=== PATIENT | male | born 1990 | race American Indian/Alaskan Native ===

== ENCOUNTER 2020-03-31 14:52 | Emergency (ER) | payer SELFPAY ==
[2020-03-31 14:57] VITALS: BP 131/72
--- NOTE | 2020-03-31 15:59 | Emergency Department Report ---
Abscess Boil HPI - HPI Chief Complaint: Back Pain/Injury Stated Complaint: BACK PAIN Time Seen by Provider: 03/31/20 15:26 Duration: 2 Days Location: Back Severity: Mild History: Yes Pain, No Fever, No Purulent Drainage, No Numbness, No Foreign Body, No Previous History, No Insect Bite HPI: This is a 29-year-old male nontoxic, well nourished in appearance, no acute signs of distress presents to the ED with c/o of redness and pain and swelling to throacic spinal area x2 ays. Patient denies any pus or drainage. Patient denies any fever, chills, nausea, vomiting, chest pain, shortness of breath, headache or stiff neck. Patient denies any allergies or significant past medical history. Home Medications: Previous Rx's Medication Instructions Recorded Last Taken Type Ibuprofen [Motrin] 800 mg PO TID #30 tablet 07/13/13 Unknown Rx methOCARBAMOL [Robaxin] 500 mg PO BID #20 tab 07/13/13 Unknown Rx traMADoL [Ultram 50 MG tab] 50 mg PO Q6HR PRN #20 tablet 07/13/13 Unknown Rx Acetaminophen/Codeine [Tylenol 1 tab PO Q6H PRN #12 tab 03/31/20 Unknown Rx /Codeine # 3 tab] Sulfamethoxazole/Trimethoprim 1 each PO BID #14 tablet 03/31/20 Unknown Rx [Bactrim DS TAB] Allergies/Adverse Reactions: Allergies Allergy/AdvReac Type Severity Reaction Status Date / Time No Known Allergies Allergy Verified 07/13/13 08:52 ED Review of Systems ROS: Stated complaint: BACK PAIN Other details as noted in HPI Constitutional: denies: chills, fever Eyes: denies: eye pain, eye discharge, vision change ENT: denies: ear pain, throat pain Respiratory: denies: cough, shortness of breath, wheezing Cardiovascular: denies: chest pain, palpitations Endocrine: no symptoms reported Gastrointestinal: denies: abdominal pain, nausea, diarrhea Genitourinary: denies: urgency, dysuria Musculoskeletal: denies: back pain, joint swelling, arthralgia Skin: denies: rash, lesions Neurological: denies: headache, weakness, paresthesias Psychiatric: denies: anxiety, depression Hematological/Lymphatic: denies: easy bleeding, easy bruising ED Past Medical Hx - Past Medical History Previous Medical History?: No - Surgical History Past Surgical History?: No - Social History Smoking Status: Current Every Day Smoker Substance Use Type: Alcohol - Medications Home Medications: Home Medications Medication Instructions Recorded Confirmed Last Taken Type Ibuprofen [Motrin] 800 mg PO TID #30 tablet 07/13/13 Unknown Rx methOCARBAMOL [Robaxin] 500 mg PO BID #20 tab 07/13/13 Unknown Rx traMADoL [Ultram 50 MG tab] 50 mg PO Q6HR PRN #20 tablet 07/13/13 Unknown Rx Acetaminophen/Codeine [Tylenol 1 tab PO Q6H PRN #12 tab 03/31/20 Unknown Rx /Codeine # 3 tab] Sulfamethoxazole/Trimethoprim 1 each PO BID #14 tablet 03/31/20 Unknown Rx [Bactrim DS TAB] ED Abscess Boil Physical Exam - Exam General: Vital signs noted. No distress. Alert and acting appropriately. Front/Back of Body, Lg (Color): 1 - 3 cm swelling noted Size: 3 cm Exam: Yes Tenderness, Yes Fluctuance, Yes Normal Neurologic Exam, Yes Normal Circulation, No Surrounding Cellulites/Erythema, No Lymphangitis, No Crepitation, No Heart Murmur I & D Note - I & D Note I & D Note: Under sterile field, I used Betadine to cleanse the area. I then used 2% lidocaine plain with 25-gauge 5/8 needle to inject area for anesthetic purposes. Total volume injected 3 mL. I then used an 11 blade to make a 1 cm incision. About 2 mL's of purulent drainage has been noted. I then used a hemostat to break the abscess formation. I then used sterile 0.9% normal saline flush to flush the wound with total volume of 40 mL used. I then put a 1/4 iodoform packing to the incision. A sterile 4 x 4 with tape has been applied as dressing. Bleeding is under control. Patient tolerated the procedure well with no signs of distress noted. ED Course Vital Signs 03/31/20 14:54 Temperature 98.1 F Pulse Rate 68 Respiratory 18 Rate Blood Pressure 131/72 O2 Sat by Pulse 98 Oximetry - Reevaluation(s) Reevaluation #1: 03/31/20 15:59 Patient is speaking in full sentences with no signs of distress noted. Critical care attestation.: If time is entered above; I have spent that time in minutes in the direct care of this critically ill patient, excluding procedure time. ED Medical Decision Making - Lab Data Result diagrams: 03/31/20 15:35 03/31/20 15:35 - Medical Decision Making This is a 29-year-old male that presents with back abscess. Patient is stable and was examined by me. This is incision and drainage and has been performed and patient tolerated well. A sterile dressing has been applied. Patient was educated on proper wound care. Patient is discharged with Bactrim and Tylenol with codeine and was instructed not to operate any machinery while taking Tylenol with codeine due to drowsiness. Patient was instructed to return in 2 days for packing removal. Patient was instructed to refer to Follow-up with a primary care doctor in 3-5 days or if symptoms worsen and continue return to emergency room as soon as possible. At time of discharge, the patient does not seem toxic or ill in appearance. No acute signs of distress noted. Patient agrees to discharge treatment plan of care. No further questions noted by the patient. ED Disposition Clinical Impression: Encounter for incision and drainage procedure, Abscess Disposition: DC-01 TO HOME OR SELFCARE Is pt being admited?: No Does the pt Need Aspirin: No Condition: Stable Instructions: Abscess (ED), Abscess Incision and Drainage (ED), Acetaminophen /Codeine (By mouth) Additional Instructions: Follow-up with a primary care doctor in 3-5 days or if symptoms worsen and continue return to emergency room as soon as possible. Return in 2 days for packing removal. Do not operate any machinery while taking Tylenol with codeine as this may cause drowsiness. Prescriptions: Sulfamethoxazole/Trimethoprim [Bactrim DS TAB] 1 each PO BID #14 tablet Acetaminophen/Codeine [Tylenol /Codeine # 3 tab] 1 tab PO Q6H PRN #12 tab PRN Reason: Pain , Severe (7-10) Referrals: PRIMARY MD VALERIE [Primary Care Provider] - 3-5 Days SHAHRIAR DAVENPORT MD [Staff Physician] - 3-5 Days Forms: Work/School Release Form(ED)
[2020-03-31 16:02] LABS: Basophils % (Auto) 0.4 % (0.0-1.8); Eosinophils # (Auto) 0.4 K/mm3 (0.0-0.4); Eosinophils % (Auto) 3.3 % (0.0-4.3); Hematocrit 47.2 % (35.5-45.6); Hemoglobin 16.1 gm/dl (11.8-15.2); Lymphocytes # (Auto) 2.4 K/mm3 (1.2-5.4); Mean Corpuscular HGB Conc 34 % (32-34); Mean Corpuscular Volume 93 fl (84-94); Monocytes % (Auto) 9.6 % (0.0-7.3); Platelet Count 219 K/mm3 (140-440); Red Cell Distribution Width 13.1 % (13.2-15.2)
[2020-03-31 16:03] LABS: BUN/Creatinine Ratio 10; Blood Urea Nitrogen 10 mg/dL (9-20); Calcium 9.6 mg/dL (8.4-10.2); Hemolysis Index 7
[2020-03-31 16:25] LABS: Bilirubin,Urine NEG (Negative); Blood,Urine NEG (Negative); Color,Urine Yellow (Yellow); Mucus,Urine 2+ /HPF; Protein,Urine <15 mg/dL mg/dL (Negative)
--- NOTE | 2020-03-31 17:31 | Cat Scan Report ---
CT THORACIC SPINE WITHOUT CONTRAST INDICATION / CLINICAL INFORMATION: swelling with tenderness r/o abscess. TECHNIQUE: Axial CT images were obtained through the thoracic spine. Sagittal and coronal reformatted images wer e produced. All CT scans at this location are performed using CT dose reduction for ALARA by means of automated exposure control. COMPARISON: None available. FINDINGS: VERTEBRAE: Vertebral morphology is normally maintained throughout. ALIGNMENT: Normal alignment is preserved throughout the thoracic region. DISC SPACES: Disc height is fairly well-maintained. FACET and COSTOVERTEBRAL JOINTS: No significant abnormality. CERVICOTHORACIC JUNCTION:No significant abnormality. SPINAL CANAL: Central spinal canal is generous in size throughout the thoracic region. PARASPINAL SOFT TISSUES: A 19 x 16 x 12 mm subcutaneous lesion is present dorsal to the T7 vertebrae to the left of the midline. This has a low-attenuation center and poorly defined margins. This may re present a cyst or subcutaneous abscess. ADDITIONAL FINDINGS: None. LUNGS: Visualized portions the lung are free from confluent infiltrate. No lung nodules are identifie d. There is no indication of pleural effusion. IMPRESSION: 1. There is a subcutaneous lesion lateralizing to the left the midline at the T7 level as described a carmen. Signer Name: Bryan Barlow MD Signed: 03/31/2020 5:27 PM Workstation Name: [id number]
[2020-03-31] MEDS ORDERED: LIDOCAINE (2%) 20 MG/1 ML VIAL 20 ML MDV INFILTRATI ONE (18:22)
== END 2020-03-31 18:40 | disposition home or self-care (01) ==
LOC: ED 14:52
DX: L02.212 Cutaneous abscess of back [any part, except buttock and flank] (principal); F17.200 Nicotine dependence, unspecified, uncomplicated
CPT/HCPCS: 10060; 36415; 72129; 80048; 81001; 85025; 99284; Q9967

== ENCOUNTER 2020-11-24 14:39 | Emergency (ER) | payer SELFPAY ==
[2020-11-24 14:55] VITALS: BP 125/80
--- NOTE | 2020-11-24 15:38 | XRay Report ---
RIGHT WRIST 3 VIEWS RIGHT HAND 3 VIEWS INDICATION / CLINICAL INFORMATION: right wrist and hand pain and swelling COMPARISON: None available. FINDINGS: BONES / JOINT(S): RIGHT WRIST: No acute fracture or subluxation. No significant arthritis. RIGHT HAND: No acute fracture or subluxation. No significant arthritis. SOFT TISSUES: Mild soft tissue swelling of the dorsum of the wrist and hand. ADDITIONAL FINDINGS: None. Signer Name: Chema Mayer MD Signed: 11/24/2020 3:33 PM Workstation Name: [id number]
--- NOTE | 2020-11-24 16:09 | Emergency Department Report ---
ED Upper Extremity Inj HPI - General Chief Complaint: Extremity Injury, Upper Stated Complaint: RT ARM INJURY Time Seen by Provider: 11/24/20 14:56 Source: patient Mode of arrival: Ambulatory Limitations: No Limitations - History of Present Illness Initial Comments: This is a 30-year-old male nontoxic, well nourished in appearance, no acute signs of distress presents to the ED with c/o of right hand and wrist pain 1 day. Patient stated that a car triston fell onto his wrist/hand area earlier today. Patient denies any other injuries or trauma. Patient denies any numbness, tingling, fever, chills, nausea, vomiting, chest pain, shortness of breath, headache, stiff neck. Patient denies any joint swelling or joint redness. Patient stated has some decreased range of motion due to pain. Patient denies any allergies or significant past medical history. MD Complaint: Injury to:: right, wrist, hand -: days(s) Other Extremity Injury: Hand: Right, Wrist: Right Severity scale (0 -10): 8 Improves With: immobilization Worsens With: movement of extremity Associated Symptoms: denies other symptoms. denies: weakness, numbness, neck pain, suspects foreign body, nausea/vomiting, heard/felt popping sensat - Related Data Previous Rx's Medication Instructions Recorded Last Taken Type Ibuprofen [Motrin] 800 mg PO TID #30 tablet 07/13/13 Unknown Rx methOCARBAMOL [Robaxin] 500 mg PO BID #20 tab 07/13/13 Unknown Rx traMADoL [Ultram 50 MG tab] 50 mg PO Q6HR PRN #20 tablet 07/13/13 Unknown Rx Acetaminophen/Codeine [Tylenol 1 tab PO Q6H PRN #12 tab 03/31/20 Unknown Rx /Codeine # 3 tab] Sulfamethoxazole/Trimethoprim 1 each PO BID #14 tablet 03/31/20 Unknown Rx [Bactrim DS TAB] Naproxen 500 mg PO Q12H PRN #12 tablet 11/24/20 Unknown Rx Allergies Allergy/AdvReac Type Severity Reaction Status Date / Time No Known Allergies Allergy Verified 07/13/13 08:52 ED Review of Systems ROS: Stated complaint: RT ARM INJURY Other details as noted in HPI Comment: All other systems reviewed and negative Constitutional: denies: chills, fever Eyes: denies: eye pain, eye discharge, vision change ENT: denies: ear pain, throat pain Respiratory: denies: cough, shortness of breath, wheezing Cardiovascular: denies: chest pain, palpitations Endocrine: no symptoms reported Gastrointestinal: denies: abdominal pain, nausea, diarrhea Genitourinary: denies: urgency, dysuria Musculoskeletal: denies: back pain, joint swelling, arthralgia Skin: denies: rash, lesions Neurological: denies: headache, weakness, paresthesias Psychiatric: denies: anxiety, depression Hematological/Lymphatic: denies: easy bleeding, easy bruising ED Past Medical Hx - Past Medical History Previous Medical History?: No - Surgical History Past Surgical History?: No - Social History Smoking Status: Current Every Day Smoker Substance Use Type: Alcohol - Medications Home Medications: Home Medications Medication Instructions Recorded Confirmed Last Taken Type Ibuprofen [Motrin] 800 mg PO TID #30 tablet 07/13/13 Unknown Rx methOCARBAMOL [Robaxin] 500 mg PO BID #20 tab 07/13/13 Unknown Rx traMADoL [Ultram 50 MG tab] 50 mg PO Q6HR PRN #20 tablet 07/13/13 Unknown Rx Acetaminophen/Codeine [Tylenol 1 tab PO Q6H PRN #12 tab 03/31/20 Unknown Rx /Codeine # 3 tab] Sulfamethoxazole/Trimethoprim 1 each PO BID #14 tablet 03/31/20 Unknown Rx [Bactrim DS TAB] Naproxen 500 mg PO Q12H PRN #12 tablet 11/24/20 Unknown Rx ED Physical Exam - General Limitations: No Limitations General appearance: alert, in no apparent distress - Head Head exam: Present: atraumatic, normocephalic - Eye Eye exam: Present: normal appearance - Neck Neck exam: Present: normal inspection, full ROM - Respiratory Respiratory exam: Absent: respiratory distress - Cardiovascular Cardiovascular Exam: Present: regular rate - Extremities Exam Extremities exam: Present: normal inspection, full ROM, tenderness, normal capillary refill. Absent: joint swelling - Expanded Upper Extremity Exam Right General: Present: normal inspection Shoulder Exam: Present: normal inspection, full ROM. Absent: tenderness, swelling Upper Arm exam: Present: normal inspection, full ROM. Absent: tenderness, swelling Elbow exam: Present: normal inspection, full ROM. Absent: tenderness, swelling Forearm Wrist exam: Present: full ROM, tenderness, swelling. Absent: abrasion, laceration, ecchymosis, deformity, crepidus, dislocation, erythema, tenderness over anatomical snuff box, pain with axial thumb loading Hand Wrist exam: Present: normal inspection, full ROM, tenderness, swelling. Absent: abrasion, laceration, ecchymosis, deformity, crepidus, dislocation, erythema, amputation, nail avulsion, subungual hematoma Hand L/R Back: 1 - Pain and swelling here 2 - Pain and swelling Vascular: Present: normal capillary refill. Absent: vascular compromise (Neurovascular within normal limits) - Back Exam Back exam: Present: normal inspection, full ROM. Absent: tenderness - Neurological Exam Neurological exam: Present: alert, oriented X3, normal gait - Psychiatric Psychiatric exam: Present: normal affect, normal mood - Skin Skin exam: Present: warm, dry, intact, normal color. Absent: rash ED Course Vital Signs 11/24/20 14:54 Temperature 98.2 F Pulse Rate 92 H Respiratory 15 Rate Blood Pressure 125/80 O2 Sat by Pulse 97 Oximetry - Reevaluation(s) Reevaluation #1: 11/24/20 16:08 Patient is speaking in full sentences with no signs of distress noted. ED Medical Decision Making - Radiology Data [facility] [address] [place] [address] XRay Report Signed Patient: ROGER RIBEIRO MR#: [id number] : 1990 Acct:[id number] Age/Sex: 30 / M ADM Date: 11/24/20 Loc: ED Attending Dr: Ordering Physician: FREDO PICHARDO NP Date of Service: 11/24/20 Pr ocedure(s): XR hand 3+V RT Accession Number(s): [id number] cc: FREDO PICHARDO NP Fluoro Time In Minutes: RIGHT WRIST 3 VIEWS RIGHT HAND 3 VIEWS INDICATION / CLINICAL INFORMATION: right wrist and hand pain and swelling COMPARISON: None available. FINDINGS: BONES / JOINT(S): RIGHT WRIST: No acute fracture or subluxation. No significant arthritis. RIGHT HAND: No acute fracture or subluxation. No significant arthritis. SOFT TISSUES: Mild soft tissue swelling of the dorsum of the wrist and hand. ADDITIONAL FINDINGS: None. Signer Name: Chema Mayer MD Signed: 11/24/2020 3:33 PM Workstation Name: [id number] Transcribed By: AMISHA Dictated By: Phil Mayer MD Electronically Authenticated By: Phil Mayer MD Signed Date/Time: 11/24/201532 DD/ 31 TD/TT: [facility] [address] [place] [address] XRay Report Signed Patient: ROGER RIBEIRO MR#: [id number] : 1990 Acct:[id number] Age/Sex: 30 / M ADM Date: 11/24/20 Loc: ED Attending Dr: Ordering Physician: FREDO PICHARDO NP Date of Service: 11/24/20 Procedure(s): XR wrist 3+V RT Accession Number(s): [id number] cc: FREDO PICHARDO NP Fluoro Time In Minutes: RIGHT WRIST 3 VIEWS RIGHT HAND 3 VIEWS INDICATION / CLINICAL INFORMATION: right wrist and hand pain and swelling COMPARISON: None available. FINDINGS: BONES / JOINT(S): RIGHT WRIST: No acute fracture or subluxation. No significant arthritis. RIGHT HAND: No acute fracture or subluxation. No significant arthritis. SOFT TISSUES: Mild soft tissue swelling of the dorsum of the wrist and hand. ADDITIONAL FINDINGS: None. Signer Name: Chema Mayer MD Signed: 11/24/2020 3:33 PM Workstation Name: [id number] Transcribed By: AMISHA Dictated By: Phil Mayer MD Electronically Authentic ated By: Phil Mayer MD Signed Date/Time: 11/24/201532 DD/ 31 TD/TT: - Medical Decision Making This is a 30-year-old man that presents with right wrist and hand strain. Patient is stable and was examined by me. I referred patient to an orthopedic doctor for further evaluation for possible MRI. X-ray has been obtained and dictated by the radiologist. Patient is notified of the x-ray report with noted by the patient. Patient does have normal range of motion with some pain and no joint swelling. No ecchymosis. no joint redness or swelling. Not warm to touch. No signs of cellulites present. Patient received Armando wrap. Patient was instructed to RICE therapy.. Patient is discharged with naproxen at time of discharge, the patient does not seem toxic or ill in appearance. No acute signs of distress noted. Patient agrees to discharge treatment plan of care. No further questions noted by the patient. Critical care attestation.: If time is entered above; I have spent that time in minutes in the direct care of this critically ill patient, excluding procedure time. ED Disposition Clinical Impression: Strain of right wrist Qualifiers: Encounter type: initial encounter Qualified Code(s): S66.911A - Strain of unspecified muscle, fascia and tendon at wrist and hand level, right hand, initial encounter Strain of right hand Qualifiers: Encounter type: initial encounter Qualified Code(s): S66.911A - Strain of unspecified muscle, fascia and tendon at wrist and hand level, right hand, initial encounter Disposition: TO HOME OR SELFCARE Is pt being admited?: No Does the pt Need Aspirin: No Condition: Stable Instructions: RICE Therapy for Routine Care of Injuries, [id number] Additional Instructions: Follow-up with a orthopedic doctor in 3-5 days or if symptoms worsen and continue return to emergency room as soon as possible. No physical activity that extremity until cleared by orthopedic doctor Prescriptions: Naproxen 500 mg PO Q12H PRN #12 tablet PRN Reason: Pain , Severe (7-10) Referrals: PRIMARY MD VALERIE [Primary Care Provider] - 3-5 Days GIO SCHMIDT MD [Staff Physician] - 3-5 Days Forms: Work/School Release Form(ED) Time of Disposition: 16:11
== END 2020-11-24 16:26 | disposition home or self-care (01) ==
LOC: ED 14:39
DX: S66.911A Strain of unspecified muscle, fascia and tendon at wrist and hand level, right hand, initial encounter (principal); F17.200 Nicotine dependence, unspecified, uncomplicated; F12.10 Cannabis abuse, uncomplicated; Z79.899 Other long term (current) drug therapy; W18.30XA Fall on same level, unspecified, initial encounter; Y93.89 Activity, other specified; Y92.89 Other specified places as the place of occurrence of the external cause; Y99.8 Other external cause status
CPT/HCPCS: 99283

== ENCOUNTER 2021-01-13 14:18 | Emergency (ER) | payer SELFPAY ==
[2021-01-13 17:09] VITALS: BP 169/81
--- NOTE | 2021-01-13 17:32 | Emergency Department Report ---
ED Rash HPI - HPI Chief Complaint: Skin/Abscess/Foreign Body Stated Complaint: INSECT BITE Time Seen by Provider: 01/13/21 17:20 Duration: 3 Days Location: Lower Extremities Suspected Cause: Insect Rash Symptoms: Yes Blistering, Yes Malaise, No Itching, No Facial Swelling, No Tongue/Oral Swelling, No Breathing Difficulties, No Choking Sensation, No Wheezing/Dyspnea, No Peeling, No Fever, No Lightheaded, No Myalgias Severity: moderate Other History: This is a 30-year-old male with no prior medical history presents to ED complaining of spider bite that happened Wednesday 3 days ago. Patient states that initially was a small little dot with a spider bite happened and in the last 2 days he has noticed that the lesion around the bite eron is gone little bigger and noticed some swelling and subtle redness. Patient denies any fever, chills, nausea vomiting. Patient states it was brown spider and he has had spider bites in the past that has not been there is swollen. ED Review of Systems ROS: Stated complaint: INSECT BITE Other details as noted in HPI Comment: All other systems reviewed and negative ED Past Medical Hx - Past Medical History Previous Medical History?: No - Surgical History Past Surgical History?: No - Social History Smoking Status: Current Every Day Smoker Substance Use Type: Alcohol - Medications Home Medications: Home Medications Medication Instructions Recorded Confirmed Last Taken Type methOCARBAMOL [Robaxin] 500 mg PO BID #20 tab 07/13/13 Unknown Rx traMADoL [Ultram 50 MG tab] 50 mg PO Q6HR PRN #20 tablet 07/13/13 Unknown Rx Acetaminophen/Codeine [Tylenol 1 tab PO Q6H PRN #12 tab 03/31/20 Unknown Rx /Codeine # 3 tab] Naproxen 500 mg PO Q12H PRN #12 tablet 11/24/20 Unknown Rx Clindamycin [Clindamycin CAP] 300 mg PO Q8H #21 cap 01/13/21 Unknown Rx Ibuprofen [Motrin 800 MG tab] 800 mg PO TID #30 tablet 01/13/21 Unknown Rx Sulfamethoxazole/Trimethoprim 1 each PO BID #14 tablet 01/13/21 Unknown Rx [Bactrim DS TAB] Rash Exam - Exam General: Vital signs noted. No distress. Alert and acting appropriately. HEENT: No Periorbital Edema, No Conjuctival Injection, No Chemosis, No Perioral Edema, No Tongue Edema, No Uvular Edema, No Compromised Airway, No Drooling Lungs: Yes Good Air Exchange (Normal Breath Sounds), No Wheezes, No Ronchi, No Stridor, No Cough, No Labored Respirations, No Retractions, No Use of Accessory Muscles, No Other Abnormal Lung Sounds Heart: Yes Regular, No Murmur Skin: Yes Tenderness, Yes Erythema, No Urticarial Rash, No Maculopapular Rash, No Morbilliform rash, No Bulla(e), No Excoriations, No Weeping, No Edema, No Encrustations, No Other Other: Positive: Abdomen Normal, Neurologic Normal, Musculoskeletal Normal ED Course Vital Signs 01/13/21 17:06 Temperature 98.4 F Pulse Rate 71 Respiratory 18 Rate Blood Pressure 169/81 [Right] O2 Sat by Pulse 96 Oximetry ED Medical Decision Making - Medical Decision Making This 30-year-old male presents to ED with cellulitis due to spider bite. Discussed antibiotic therapy and completion. Patient is in no acute distress. At this time patient will be sent home on anti biotics and pain meds. Discussed heat application 3 times a day. Patient is in no acute distress throughout ED stay, follow-up. Critical care attestation.: If time is entered above; I have spent that time in minutes in the direct care of this critically ill patient, excluding procedure time. ED Disposition Clinical Impression: Spider bite, Cellulitis Disposition: DC-01 TO HOME OR SELFCARE Is pt being admited?: No Does the pt Need Aspirin: No Condition: Stable Instructions: Cellulitis, Adult, Spider Bite, [id number] Additional Instructions: Make sure to follow up with the primary care physician as discussed. Take all your medications as you've been prescribed. If you have any worsening symptoms or develop new symptoms please return to ED immediately. Prescriptions: Sulfamethoxazole/Trimethoprim [Bactrim DS TAB] 1 each PO BID #14 tablet Clindamycin [Clindamycin CAP] 300 mg PO Q8H #21 cap Ibuprofen [Motrin 800 MG tab] 800 mg PO TID #30 tablet Referrals: [facility] [Outside] - 3-5 Days Forms: Work/School Release Form(ED) Time of Disposition: 17:47
== END 2021-01-13 18:45 | disposition home or self-care (01) ==
LOC: ED 14:18
DX: L03.116 Cellulitis of left lower limb (principal); F17.200 Nicotine dependence, unspecified, uncomplicated; Z72.89 Other problems related to lifestyle; Z79.899 Other long term (current) drug therapy; W57.XXXA Bitten or stung by nonvenomous insect and other nonvenomous arthropods, initial encounter; Y93.89 Activity, other specified; Y92.89 Other specified places as the place of occurrence of the external cause; Y99.8 Other external cause status
CPT/HCPCS: 99282